=== PATIENT | male | born 1945 | race Caucasian/White ===

== ENCOUNTER 2019-04-23 07:42 | Day surgery (SDC) | payer OTHER ==
[~2019-04-23] VITALS: Ht 182.9 cm; Wt 90.3 kg
[~2019-04-23 07:42] MED LIST: AMIO200T5 PO; CARV25TA PO; ENAL10TA PO; METF-446 PO; SIMV40TA5 PO; SODIUM CHLORIDE 0.9% 1000ML 1,000 ML IV ONE; SPIR25TA6 PO; ZOLP10TA6 PO
[2019-04-23 08:58] VITALS: BP 146/62
[2019-04-23] MEDS ORDERED: APIX5TAB PO (09:08)
--- NOTE | 2019-04-23 09:11 | NUR ---
NURSING PER PT HE TOOK ONLY 1/2 GALLON OF PREP AND REPORT STOOL IS WATERY YELLOW CLEAR AND HE TOOK 4OZ GREEN TEA THIS AM AT 6 AM SO REPORTED TO GRISELDA WITH ANESTHESIA AND STATES OK TO PROCEED WITH EXAM AT 11 AM. EXPLAINED REASON FOR DELAY OF PROC TO PT AND FAMILY AND THEY VERBALIZED UNDERSTANDING Addendum: 04/23/19 at 0915 by KRISTEL BLANCO RN Amended: Links added.
[2019-04-23] MEDS ORDERED: PROPOFOL 10 MG/ML 20ML VIAL IV ONE ×2 (12:18)
[2019-04-23] MEDS ORDERED: SIMETHICONE 40 MG/0.6 ML ML ONE (12:40)
[2019-04-23 12:42] VITALS: BP 83/41
[2019-04-23 12:47] VITALS: BP 98/37
[2019-04-23 12:52] VITALS: BP 104/58
[2019-04-23 12:57] VITALS: BP 112/61
[2019-04-23 13:05] VITALS: BP 121/55
== END 2019-04-23 13:30 | disposition home or self-care (01) ==
LOC: ENDO 07:42 → DAH 07:42 → ENDO 13:30
PROVIDERS: ATTEND Internal Medicine Gastroenterology
DX: K29.40 Chronic atrophic gastritis without bleeding (principal); K31.9 Disease of stomach and duodenum, unspecified; K57.30 Diverticulosis of large intestine without perforation or abscess without bleeding; K64.1 Second degree hemorrhoids; K22.5 Diverticulum of esophagus, acquired; K31.89 Other diseases of stomach and duodenum; D64.9 Anemia, unspecified; I48.2 Chronic atrial fibrillation; I25.10 Atherosclerotic heart disease of native coronary artery without angina pectoris; Z95.0 Presence of cardiac pacemaker; Z95.5 Presence of coronary angioplasty implant and graft; Z95.1 Presence of aortocoronary bypass graft; I10 Essential (primary) hypertension; E78.5 Hyperlipidemia, unspecified; I45.10 Unspecified right bundle-branch block; Z79.84 Long term (current) use of oral hypoglycemic drugs; Z79.899 Other long term (current) drug therapy; Z86.010 Personal history of colon polyps
CPT/HCPCS: 43239; 45378; 82948 ×2; 88305; 93005; A4606; J2704 ×2; J7030